=== PATIENT | female | born 1975 | race Hispanic/Latino ===

== ENCOUNTER 2023-08-03 23:01 | Emergency (ER) | payer SELFPAY ==
[2023-08-04] MEDS ORDERED: Ondansetron ODT 4 MG TAB ONE (02:10)
[2023-08-04] MEDS ORDERED: HYDROcodone/Acetaminophen 5/325 mg Tablet ONE (02:11)
== END 2023-08-04 02:27 | disposition home or self-care (01) ==
LOC: ERS 23:01
DX: K80.50 Calculus of bile duct without cholangitis or cholecystitis without obstruction (principal); I10 Essential (primary) hypertension; E03.9 Hypothyroidism, unspecified
CPT/HCPCS: 76705; Q0162